=== PATIENT | female | born 1995 | race Caucasian/White ===

== ENCOUNTER 2022-11-23 13:08 | Inpatient (IN) | payer OTHER ==
[2022-11-23 15:41] LABS: BASO % 0.4 % (0-2.0); HEMATOCRIT 19.5 % (32.4-45.2); LYMPH % 11.6 % (8-40); MCH 24.9 pg (25.7-33.7); MCHC 31.9 g/dl (32.0-36.0); MEAN CELL VOLUME 78.1 fl (80-96); MEAN PLT VOLUME 8.6 fl (7.5-11.1); MONO % 4.3 % (3.8-10.2); NEUT % 83.7 % (42.8-82.8); PLATELET COUNT 260 10^3/uL (134-434); RDW 16.3 % (11.6-15.6); WHITE BLOOD COUNT 5.6 K/mm3 (4.0-10.0)
[2022-11-23 15:44] LABS: HEMOGLOBIN 6.2 GM/dL (10.7-15.3)
[2022-11-23 15:50] LABS: INR 1.25 (0.83-1.09); PROTHROMBIN TIME (PATIENT) 14.5 SEC (9.7-13.0)
[2022-11-23 15:53] LABS: ACTIVATED PTT 30.7 SECONDS (25.2-36.5)
[2022-11-23] MEDS ORDERED: hydrOXYzine PAMOATE 50 MG CAPSULE (FP) PO ONE (15:55)
[2022-11-23] MEDS ORDERED: hydrOXYzine PAMOATE 50 MG CAPSULE (FP) ONE (16:18)
[2022-11-23 16:19] LABS: POTASSIUM 4.1 mmol/L (3.5-5.1)
[2022-11-23 16:21] LABS: ALBUMIN 3.8 g/dl (3.4-5.0); BLOOD UREA NITROGEN 9.4 mg/dL (7-18); CALCIUM 8.8 mg/dL (8.5-10.1)
[2022-11-23 16:24] LABS: CREATININE 0.8 mg/dL (0.55-1.3)
[2022-11-23 16:26] LABS: BILIRUBIN,TOTAL 0.5 mg/dL (0.2-1); TOT PROT 6.2 g/dl (6.4-8.2)
[2022-11-23] MEDS ORDERED: ALPRAZolam 1 MG TABLET PO ONE (16:52)
[2022-11-23] MEDS ORDERED: ALPRAZolam 0.25 MG TABLET ONE ×2 (17:08→22:53)
[2022-11-23] MEDS ORDERED: ALPRAZolam 0.25 MG TABLET PO PRN ×2 (22:46→23:54)
[2022-11-24 07:32] LABS: HEMATOCRIT 26.5 % (32.4-45.2); HEMOGLOBIN 8.6 GM/dL (10.7-15.3); MCH 25.6 pg (25.7-33.7); MCHC 32.3 g/dl (32.0-36.0); MEAN CELL VOLUME 79.2 fl (80-96); MEAN PLT VOLUME 9.3 fl (7.5-11.1); PLATELET COUNT 225 10^3/uL (134-434); RBC 3.34 M/mm3 (3.60-5.2); RDW 17.5 % (11.6-15.6); WHITE BLOOD COUNT 4.9 K/mm3 (4.0-10.0)
[2022-11-24 07:55] LABS: POTASSIUM 3.8 mmol/L (3.5-5.1)
[2022-11-24 07:59] LABS: ALBUMIN 3.4 g/dl (3.4-5.0)
[2022-11-24 08:01] LABS: CALCIUM 8.4 mg/dL (8.5-10.1)
[2022-11-24 08:02] LABS: BLOOD UREA NITROGEN 8.2 mg/dL (7-18); CREATININE 0.6 mg/dL (0.55-1.3)
[2022-11-24 08:03] LABS: TOT PROT 5.8 g/dl (6.4-8.2)
[2022-11-24 08:04] LABS: BILIRUBIN,TOTAL 1.3 mg/dL (0.2-1)
[2022-11-24] MEDS ORDERED: SODIUM CHLORIDE 500 ML IV STA (08:35)
[2022-11-24 08:59] LABS: RETICULOCYTES 1.95 % (0.5-1.5)
[2022-11-24] MEDS ORDERED: IRON SUCROSE INJECTION 200 MG in SODIUM CHLORIDE 90 ML IVPB ONE ×2 (13:20→16:30)
[2022-11-24] MEDS ORDERED: MIDAZOLAM HCL 2 MG/2 ML SINGLE DOSE VIAL ONE ×2 (13:28→14:13)
[2022-11-24] MEDS ORDERED: PROPOFOL 20 ML ONE (13:28)
[2022-11-24] MEDS ORDERED: LIDOCAINE HCL/PF 2% SDV 5ML VIAL ONE (13:28)
[2022-11-24] MEDS ORDERED: ceFAZolin SODIUM 1 GM VIAL ONE ×2 (14:14)
[2022-11-24] MEDS ORDERED: DEXAMETHASONE SOD PHOSPHATE 4 MG/1 ML VIAL ONE (14:16)
[2022-11-24] MEDS ORDERED: ONDANSETRON 4 MG/2 ML VIAL ONE (14:20)
[2022-11-24] MEDS ORDERED: KETOROLAC TROMETHAMINE 30 MG/1 ML VIAL ONE (14:20)
[2022-11-24] MEDS ORDERED: ACETAMINOPHEN 1000 MG/100 ML BAG IVPB ONE (17:35)
[2022-11-24 19:20] LABS: HEMATOCRIT 25.5 % (32.4-45.2); HEMOGLOBIN 8.5 GM/dL (10.7-15.3); MCHC 33.1 g/dl (32.0-36.0); MEAN CELL VOLUME 78.4 fl (80-96); MEAN PLT VOLUME 9.2 fl (7.5-11.1); PLATELET COUNT 246 10^3/uL (134-434); RBC 3.26 M/mm3 (3.60-5.2); RDW 17.4 % (11.6-15.6); WHITE BLOOD COUNT 5.8 K/mm3 (4.0-10.0)
[2022-11-24 20:48] LABS: ANISOCYTOSIS 1+; MACROCYTOSIS 0; PLATELET ESTIMATE NORMAL
[2022-11-24] MEDS ORDERED: DOXYCYCLINE INJECTION 100 MG in DEXTROSE 5%-WATER 100 ML IVPB SCH (22:00)
[2022-11-24] MEDS: ACETAMINOPHEN 500 MG TABLET (FP) PO PRN (22:49)
[2022-11-24] MEDS: MELATONIN 5 MG TABLETS PO PRN (22:50)
[2022-11-25 08:24] LABS: HEMATOCRIT 26.5 % (32.4-45.2); HEMOGLOBIN 8.6 GM/dL (10.7-15.3); MCH 25.7 pg (25.7-33.7); MCHC 32.4 g/dl (32.0-36.0); MEAN CELL VOLUME 79.3 fl (80-96); MEAN PLT VOLUME 9.6 fl (7.5-11.1); PLATELET COUNT 242 10^3/uL (134-434); RBC 3.34 M/mm3 (3.60-5.2); RDW 17.3 % (11.6-15.6)
[2022-11-25 08:49] LABS: ALBUMIN 3.5 g/dl (3.4-5.0)
[2022-11-25 08:52] LABS: BILIRUBIN,DIRECT 0.3 mg/dL (0.0-0.2)
[2022-11-25 08:54] LABS: BILIRUBIN,TOTAL 1.2 mg/dL (0.2-1); TOT PROT 5.8 g/dl (6.4-8.2)
[2022-11-25] MEDS ORDERED: PIPERACILLIN/TAZOB 4.5 GM 4.5 GM in DEXTROSE 5%-WATER 100 ML IVPB SCH (09:00)
[2022-11-25] MEDS ORDERED: IRON SUCROSE INJECTION 200 MG in SODIUM CHLORIDE 90 ML IVPB ONE (10:00)
[2022-11-25] MEDS: PIPERACILLIN/TAZOB 4.5 GM 4.5 GM in DEXTROSE 5%-WATER 100 ML IVPB SCH ×2 (10:11→14:43)
[2022-11-25 14:16] VITALS: BMI 18.3
[2022-11-25] MEDS: PIPERACILLIN/TAZOB 3.375 GM 3.375 GM in DEXTROSE 5%-WATER - 50 ML IVPB SCH (17:05)
[2022-11-25] MEDS: ACETAMINOPHEN 500 MG TABLET (FP) PO PRN (18:01)
[2022-11-25] MEDS ORDERED: ACETAMINOPHEN 1000 MG/100 ML BAG IVPB PRN (20:51)
[2022-11-25] MEDS: MELATONIN 5 MG TABLETS PO PRN (23:28)
[2022-11-26] MEDS: PIPERACILLIN/TAZOB 3.375 GM 3.375 GM in DEXTROSE 5%-WATER - 50 ML IVPB SCH ×3 (01:28→17:38)
[2022-11-26 08:25] LABS: HEMATOCRIT 24.1 % (32.4-45.2); HEMOGLOBIN 7.9 GM/dL (10.7-15.3); MCH 26.1 pg (25.7-33.7); MCHC 32.7 g/dl (32.0-36.0); MEAN CELL VOLUME 79.8 fl (80-96); MEAN PLT VOLUME 9.5 fl (7.5-11.1); PLATELET COUNT 241 10^3/uL (134-434); RBC 3.02 M/mm3 (3.60-5.2); RDW 17.1 % (11.6-15.6); WHITE BLOOD COUNT 5.7 K/mm3 (4.0-10.0)
[2022-11-26] MEDS ORDERED: LACTATED RINGERS SOLUTION 1000 ML INFUS.BAG IV ONE (10:00)
[2022-11-26 12:01] VITALS: TEMP 98.9
[2022-11-26 15:01] VITALS: BP 113/67; PULSE 84; RESP 18
[2022-11-26 15:17] LABS: HEMATOCRIT 25.9 % (32.4-45.2); HEMOGLOBIN 8.3 GM/dL (10.7-15.3); MCH 25.8 pg (25.7-33.7); MCHC 32.1 g/dl (32.0-36.0); MEAN CELL VOLUME 80.3 fl (80-96); MEAN PLT VOLUME 8.7 fl (7.5-11.1); PLATELET COUNT 275 10^3/uL (134-434); RBC 3.23 M/mm3 (3.60-5.2); RDW 17.5 % (11.6-15.6); WHITE BLOOD COUNT 5.8 K/mm3 (4.0-10.0)
[2022-11-26] MEDS ORDERED: AMOX TR/POT CLAV 875MG/125MG TABLETS (FP) PO ONE (17:45)
== END 2022-11-26 19:39 | disposition home or self-care (01) | DRG 952 ==
LOC: JER 13:08 → JERBED 20:14 → OBSVTOIN 22:34 → J4W 11-24 00:53
PROVIDERS: ADMIT Internal Medicine; ATTEND Internal Medicine
PROC: 30233N1 Transfusion of Nonautologous Red Blood Cells into Peripheral Vein, Percutaneous Approach (ICD-10-PCS; 2022-11-23)
PROC: 10D17ZZ Extraction of Products of Conception, Retained, Via Natural or Artificial Opening (ICD-10-PCS; principal; 2022-11-24 14:00)
DX: D62 Acute posthemorrhagic anemia (principal); R00.0 Tachycardia, unspecified; R42 Dizziness and giddiness; N93.9 Abnormal uterine and vaginal bleeding, unspecified; F41.8 Other specified anxiety disorders; O03.4 Incomplete spontaneous abortion without complication
CPT/HCPCS: 36415; 36430; 76830-TC; 80053; 80076; 82728; 83540; 83550; 84703; 85025; 85027; 85045; 85610; 85730; 86850; 86900; 86901; 86922; 87040; 88305-TC; 93005; 93010; 94760; 99285-25; G0378; J1756; P9058